=== PATIENT | male | born 1995 | race Caucasian/White ===

== ENCOUNTER 2025-01-05 10:59 | Emergency (ER) | payer OTHER, SELFPAY ==
[2025-01-05 11:04] VITALS: BP 132/94
[2025-01-05 11:52] LABS: COVID-19 Antigen Negative (Negative)
--- NOTE | 2025-01-05 12:29 | ED.GENMED ---
History of Present Illness
General
Chief Complaint: Allergic Reaction
Source: patient
Exam Limitations: none
Time Seen by Provider: 01/05/25 12:05
Nursing documentation reviewed up to this point in time: agreed with
History of Present Illness
History of Present Illness:
29-year-old male with no significant past medical history states 6 days ago he had sinus stuffiness, he was taking DayQuil, yesterday he developed chest tightness which is described more as tightness in his lungs, And feeling like he has to take a
deep breath. Yesterday he also noted itching in his lower abdomen and private areas and this morning he saw scattered hives in the area so he took Benadryl which helped and the hives seem to have gone down.
This morning he states the hives were back and also in his axillary areas the folds of his elbows and the backs of his knees. He did not take any Benadryl today.
No known exposures. No recent travel. Denies abdominal pain or fever.
Past History
Past History
ED Past Medical History: None
ED Past Surgical History: None
Social History
Tobacco: Former smoker
Alcohol: Occasional
Personal: Single
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
Review of Systems
Review of Systems
Allergies reviewed?: Yes
All Other Systems: ROS reviewed and negative except as documented in HPI and ROS
Constitutional: Denies fever or fatigue
EENT: Denies sore throat or mouth swelling
Respiratory: Reports trouble breathing (Feels like he has to take deep breaths more than usual his lungs feel tight); Denies cough
Cardiac: Reports no symptoms
ABD/GI: Reports no symptoms
Musculoskeletal: Reports no symptoms
Skin: Reports itching and rash
Neurological: Reports no symptoms
Phy Exam
Physical Exam
Physical Exam:
GENERAL: No acute distress. A&Ox3.
CONSTITUTIONAL: Afebrile.
EYES: clear, conjunctivae normal
ENMT: moist mucus membranes, Pharynx nl
RESPIRATORY: Regular respirations, nonlabored, lungs clear. Pulse ox 99% RA
CARDIOVASCULAR: Regular rate and rhythm, no murmurs, no rubs.
GI: Soft, nontender, normal BS
MUSCULOSKELETAL: Moves with ease. Well perfused.
SKIN: Warm, dry, pink, small welts noted along his underwear waistline, few welts in both axillary areas, both antecubital areas, both popliteal areas, few patches on arms and torso. Underlying skin is normal
PSYCH: Normal mood and affect. Well kept, interactive and appropriate
NEUROLOGIC: Awake, alert and oriented. No focal neurological deficits
Course
Orders/Labs/Results
Orders:
Orders
01/05/25 11:06
Electrocardiogram (*1) Urgent
Reason for Study: Chest Pain
EKG- Treatment ONCE
01/05/25 11:16
COVID-19 Antigen Urgent
Source: Nasal Swab
Influenza A+B Rapid Molecular Urgent
BETHANY Source: Nasal Swab
Specimen Description:
01/05/25 12:29
Dexamethasone Sod Phosphate [Decadron] 10 mg IV NOW STA
Famotidine [Pepcid] 20 mg IV NOW STA
Ipratropium/Albuterol Sulfate [Duoneb] 3 ml INH R NOW STA
Vital Signs
Initial and Last Documented VS:
Initial Vital Signs
Temp Pulse Resp BP Pulse Ox
97.9 F 83 18 132/94 99
01/05/25 11:04 01/05/25 11:04 01/05/25 11:04 01/05/25 11:04 01/05/25 11:04
Last Documented Vital Signs
Temp Pulse Resp BP Pulse Ox
97.9 F 68 17 137/87 100
01/05/25 11:04 01/05/25 13:01 01/05/25 13:01 01/05/25 13:01 01/05/25 13:01
MDM/Problems Addressed
Differential Diagnosis Includes:
Allergic reaction, idiopathic hives/urticaria,viral illness, physical triggers: cold, heat
MDM/Problems Addressed:
29-year-old male with no significant past medical history states 6 days ago he had sinus stuffiness, he was taking DayQuil, yesterday he developed chest tightness which is described more as tightness in his lungs, And feeling like he has to take a
deep breath. Yesterday he also noted itching in his lower abdomen and private areas and this morning he saw scattered hives in the area so he took Benadryl which helped and the hives seem to have gone down.
This morning he states the hives were back and also in his axillary areas the folds of his elbows and the backs of his knees. He did not take any Benadryl today.
No known exposures. No recent travel. Denies abdominal pain or fever.
Covid neg
Flu neg
NAD
Lungs CTA
EKG NSR
Hives are about 50% improved, pt stable for discharge
Rx for Prednisone taper sent to his pharmacy
return instructions discussed.
*Critical Care Note
Total Time (30-74mins, 75-104mins- exclusive of procedures): Not Applicable
ED Attending Note
-
Portions of this chart may have been created with voice recognition software.� Occasional wrong word or��sound alike� substitutions may have occurred due to the inherent limitations of voice recognition software.
Discharge Plan
Departure
Patient Disposition: Home (Routine Discharge)
Date of Disposition: 01/05/25
Time of Disposition: 14:08
Patient with high blood pressure during this ER visit?: No
Condition: Good
Covid-19: Negative COVID-19
Discharge Problem:
Acute urticaria
Instructions: Hives (DC)
Prescriptions:
New
prednisone 10 mg Tablet
See Rx Instructions .ROUTE .COMPLEX Qty: 30 0RF
Rx Instructions:
Take By Mouth:
40 mg daily x3 days, 30 mg daily x3 days,
20 mg daily x3 days, 10 mg daily x3 days.
Referrals:
NONE,* [Family Provider] -
Activity Restrictions/Additional Instructions:
As we discussed, I sent a prescription to your pharmacy for a Prednisone Taper.
Return here immediately for trouble breathing, swelling in throat or feeling sicker in any way.
Interventions
Interventions:
*Risk Screen - Suicide Last Done: 01/05/25 11:04
*General Assessment Last Done: 01/05/25 13:01
*Neglect/Abuse Screening Last Done: 01/05/25 13:01
ED- Fall Risk Assessment Last Done: 01/05/25 13:22
*ED COVID-19 Vaccine History Last Done: 01/05/25 13:01
*Nursing Disposition Last Done: 01/05/25 14:25
ED- Cardiac Assessment Last Done: 01/05/25 13:22
ED- Pulmonary Assessment Last Done: 01/05/25 13:21
ED-Skin Assessment Last Done: 01/05/25 13:20
Discharge Date and Time
Discharge Date/Time: 01/05/25 14:25
Print Language: DIVEHI
[2025-01-05] MEDS: DECADRON 10 MG IV (12:55)
[2025-01-05] MEDS: PEPCID 20 MG IV (12:56)
[2025-01-05] MEDS: DUONEB 3 ML INH (12:57)
[2025-01-05 13:01] VITALS: BP 137/87
== END 2025-01-05 14:25 | disposition home or self-care (01) ==
LOC: EMR 10:59
PROVIDERS: Emergency Medicine; EMERGENCY PHYSICIAN Emergency Medicine
DX: L50.9 Urticaria, unspecified (principal); R07.89 Other chest pain; Z87.891 Personal history of nicotine dependence
CPT/HCPCS: 96374; 96375; 94640; 99284; 87502; 87811; 93005